=== PATIENT | female | born 1980 | race Caucasian/White ===

== ENCOUNTER 2017-06-15 08:43 | Emergency (ER) | payer OTHER ==
[~2017-06-15] VITALS: Ht 160 cm; Wt 87.1 kg
[~2017-06-15 08:43] MED LIST: AMOXICILLIN500 M2 PO; AMOXICILLIN500 MG PO; AMOXIL500 MG PO; BACTRIM DS 8001 TA1 PO; BACTROBAN CREAM15 GM PO; FIORICET 325 MG1 TAB PO; FLEXERIL10 MG PO; FLONASE ALLERG9.9 ML NAS; HYDROCODONE BIT1 T11 PO; IBU-8800 MG PO; KEFLEX500 MG PO; LOMOTIL 0.025 M1 TA1 PO; MOTRIN800 MG PO; NAPROSYN500 MG PO; NKHM; NORCO 325 MG-51 TAB PO; PEN-V500 MG PO; PERIDEX 480 ML480 ML PO; PHENERGAN W/ DE30 ML PO; PREDNICOT10 MG PO; PREDNISONE10 MG PO; PREDNISONE20 MG PO; PROAIR HFA0.09 MG/AC IH; PROAIR HFA0.09 MG/AC INH; PROVENTIL0.09 MG/AC IH; PYRIDIUM200 M1 PO; ROBITUSSIN DM480 ML PO; VENTOLIN H0.09 MG/AC INH; ZITHROMAX TRI-500 MG PO; ZITHROMAX Z PA250 MG PO; ZOFRAN ODT4 MG SL; ZYRTEC10 MG PO
[2017-06-15] MEDS ORDERED: TESSALON PERLE100 MG PO (09:52)
== END 2017-06-15 10:12 | disposition home or self-care (01) ==
LOC: ED 08:43
DX: J06.9 Acute upper respiratory infection, unspecified (principal); R05 Cough; Z88.6 Allergy status to analgesic agent; Z79.899 Other long term (current) drug therapy

== ENCOUNTER 2017-09-23 23:12 | Emergency (ER) | payer OTHER ==
[~2017-09-23] VITALS: Ht 160 cm; Wt 85.7 kg
[~2017-09-23 23:12] MED LIST changes: +TESSALON PERLE100 MG PO
== END 2017-09-23 23:44 | disposition home or self-care (01) ==
LOC: ED 23:12
DX: M25.511 Pain in right shoulder (principal); Z98.51 Tubal ligation status; Z88.6 Allergy status to analgesic agent; X50.1XXA Overexertion from prolonged static or awkward postures, initial encounter; Y93.89 Activity, other specified; Y92.89 Other specified places as the place of occurrence of the external cause; Y99.9 Unspecified external cause status

== ENCOUNTER 2017-10-21 15:38 | Emergency (ER) | payer OTHER ==
[~2017-10-21] VITALS: Ht 160 cm; Wt 83.0 kg
[2017-10-21] MEDS ORDERED: FLONASE ALLERG9.9 ML NAS (15:59)
[2017-10-21] MEDS ORDERED: AMOXICILLIN500 M2 PO (15:59)
[2017-10-21] MEDS ORDERED: ZYRTEC10 MG PO (15:59)
== END 2017-10-21 16:15 | disposition home or self-care (01) ==
LOC: ED 15:38
DX: J01.90 Acute sinusitis, unspecified (principal); F17.200 Nicotine dependence, unspecified, uncomplicated; Z88.8 Allergy status to other drugs, medicaments and biological substances

== ENCOUNTER 2017-12-13 22:06 | Inpatient (IN) | payer OTHER ==
[~2017-12-13] VITALS: Ht 160 cm; Wt 84.4 kg
--- NOTE | ~2017-12-13 | EKG ---
[place], [place] ELECTROCARDIOGRAM REPORT NAME: ABIGAIL WHITLOCK UNIT #: [id number] ROOM: 518 DOCTOR: NOAM DRAFT REPORT BIRTHDATE: [birth year] [facility] [place] Test Date: 2017-12-13 Test Time: 22:33:04 Pat Name: ABIGAIL WHITLOCK Department: Room: 518 Gender: F Emergency Care Attendant: SS RESP : 1980 Requested By: PALMIRA RAMEY DNP Order Number: [id number] Reading MD: Tim Rivas MD Measurements Intervals [place] Rate: 123 P: 56 IL: 126 QRS: -17 QRSD: 100 T: 54 QT: 319 QTc: 457 Interpretive Statements Sinus tachycardia Ventricular premature complex Borderline left axis deviation Borderline low voltage, extremity leads Electronically Signed On 12-14-2017 14:08:23 PDT by Tim Rivas MD CM:EKGRPT:ELECTROCARDIOGRAM REPORT [id number] PALMIRA SANTACRUZ DRAFT REPORT PALMIRA RAMEY DNP
[2017-12-13 22:08] VITALS: BP 131/79
[2017-12-13 22:27] LABS: BILIRUBIN 1+ (NEGATIVE); BLOOD 1+ (NEGATIVE); CLARITY CLOUDY (CLEAR); COLOR YELLOW (YELLOW); GLUCOSE TRACE (NEGATIVE); KETONE 3+ (NEGATIVE); LEUKO ESTERASE 3+ (NEGATIVE); NITRITE POSITIVE (NEGATIVE); SPECIFIC GRAVITY <= 1.005 (1.005-1.030); UROBILINOGEN >= 8.0 E.U./dl (0.2-1.0)
[2017-12-13 22:32] LABS: BASO % 0.4 % (0.0-1.0); EOS # 0.1 10*3/uL (0.0-0.4); EOS % 1.3 % (1.0-4.0); HEMATOCRIT 41.2 % (37.0-47.0); HEMOGLOBIN 14.2 g/dl (12.0-16.0); LYMPH # 0.4 10*3/uL (1.3-4.4); LYMPH % 9.5 % (27.0-41.0); MEAN CELL VOLUME 91.2 fl (81.0-99.0); MEAN CORPUSCULAR HGB 31.4 pg (27.0-31.0); MEAN CORPUSCULAR HGB CONC 34.5 g/dl (33.0-37.0); MEAN PLATELET VOLUME 10.2 fl (9.6-12.3); MONO # 0.4 10*3/uL (0.1-1.0); MONO % 7.5 % (3.0-9.0); NEUT # 3.8 10*3/uL (2.3-7.9); NEUT % 81.1 % (47.0-73.0); PLATELET COUNT AUTOMATED 212 10*3/uL (130-400); RED BLOOD COUNT 4.52 10*6/uL (4.10-5.10); RED CELL DISTRI WIDTH 12.1 % (0-14.5); WHITE BLOOD COUNT 4.6 10*3/uL (4.8-10.8)
[2017-12-13 22:43] LABS: BACTERIA 2+; EPITHELIAL CELLS 15-20; WBC TNTC wbc/hpf (0-5)
[2017-12-13 22:46] LABS: INTERNATIONAL NORM RATIO 0.9 (2.0-3.5)
[2017-12-13 22:49] LABS: ALBUMIN 2.5 gm/dl (3.1-4.5); ALKALINE PHOSPHATASE 155 U/L (45-117); BUN 11 mg/dl (7-24); CHLORIDE 96 mmol/L (98-107); CREATININE 0.81 mg/dL (0.55-1.02); POTASSIUM 3.4 mmol/L (3.5-5.1); SGOT/AST 31 IU/L (3-35); SGPT/ALT 27 U/L (12-78); SODIUM 131 mmol/L (136-145); TOTAL PROTEIN 7.4 gm/dL (6.4-8.2); TROPONIN I < 0.015 ng/ml (<0.045)
[2017-12-13 22:59] VITALS: BP 130/79
[2017-12-13 23:52] VITALS: BP 115/81
[2017-12-14 00:10] VITALS: BP 126/75
[2017-12-14] MEDS ORDERED: GLUCOPHAGE1000 MG PO (00:25)
[2017-12-14 06:39] LABS: BASO % 0.4 % (0.0-1.0); EOS % 0.9 % (1.0-4.0); HEMATOCRIT 39.8 % (37.0-47.0); HEMOGLOBIN 12.9 g/dl (12.0-16.0); LYMPH % 21.9 % (27.0-41.0); MEAN CORPUSCULAR HGB CONC 32.4 g/dl (33.0-37.0); MEAN PLATELET VOLUME 10.1 fl (9.6-12.3); MONO # 0.5 10*3/uL (0.1-1.0); MONO % 9.7 % (3.0-9.0); NEUT # 3.1 10*3/uL (2.3-7.9); NEUT % 66.7 % (47.0-73.0); PLATELET COUNT AUTOMATED 196 10*3/uL (130-400); RED BLOOD COUNT 4.16 10*6/uL (4.10-5.10); RED CELL DISTRI WIDTH 12.3 % (0-14.5); WHITE BLOOD COUNT 4.7 10*3/uL (4.8-10.8)
[2017-12-14 06:42] LABS: MEAN CELL VOLUME 95.7 fl (81.0-99.0)
[2017-12-14 07:05] LABS: BUN 8 mg/dl (7-24); CHLORIDE 104 mmol/L (98-107); CHOLESTEROL 140 mg/dL (<200); CREATININE 0.82 mg/dL (0.55-1.02); PHOSPHOROUS 3.1 mg/dL (2.5-4.9); POTASSIUM 3.8 mmol/L (3.5-5.1); SODIUM 139 mmol/L (136-145); TRIGLYCERIDES 362 mg/dl (<150); VLDL CHOLESTEROL 72 mg/dL (6-40)
[2017-12-14 07:15] LABS: HDL CHOLESTEROL 13 mg/dl (40-60); LDL CHOLESTEROL 55 mg/dL (9-159)
[2017-12-14 08:00] VITALS: BP 118/72
[2017-12-14 08:44] LABS: VITAMIN D, 25-HYDROXY 16.8 ng/mL (30-100)
[2017-12-14 12:00] VITALS: BP 126/71
[2017-12-14 13:49] VITALS: BP 164/78
[2017-12-14 16:00] VITALS: BP 149/93
[2017-12-14 20:00] VITALS: BP 121/70
[2017-12-15] VITALS: BP 110/65
[2017-12-15 08:00] VITALS: BP 120/71
[2017-12-15 12:00] VITALS: BP 136/76
[2017-12-15 16:00] VITALS: BP 153/84
[2017-12-15 20:00] VITALS: BP 139/89
[2017-12-16] VITALS: BP 127/76
[2017-12-16 08:00] VITALS: BP 140/91
[2017-12-16 12:00] VITALS: BP 128/79
[2017-12-16] MEDS ORDERED: VITAMIN D5000 UNI1 PO (15:48)
[2017-12-16] MEDS ORDERED: CIPRO500 MG PO (15:48)
== END 2017-12-16 16:50 | disposition home or self-care (01) | DRG 872 ==
LOC: ED 22:06 → EDHOLD 23:32 → 5E 23:32
PROVIDERS: Nurse Practitioner Family; Student in an Organized Health Care Education/Training Program
DX: A41.9 Sepsis, unspecified organism (principal); N10 Acute pyelonephritis; E11.65 Type 2 diabetes mellitus with hyperglycemia; J20.9 Acute bronchitis, unspecified; B96.20 Unspecified Escherichia coli [E. coli] as the cause of diseases classified elsewhere; E55.9 Vitamin D deficiency, unspecified; Z98.51 Tubal ligation status; Z88.8 Allergy status to other drugs, medicaments and biological substances; Z91.040 Latex allergy status; Z79.899 Other long term (current) drug therapy; Z72.0 Tobacco use; Z71.6 Tobacco abuse counseling; M94.0 Chondrocostal junction syndrome [Tietze]

== ENCOUNTER 2018-11-23 00:26 | Emergency (ER) | payer OTHER ==
[~2018-11-23] VITALS: Ht 160 cm; Wt 77.1 kg
[~2018-11-23 00:26] MED LIST changes: +CIPRO500 MG PO; +GLUCOPHAGE1000 MG PO; +VITAMIN D5000 UNI1 PO
[2018-11-23] MEDS ORDERED: AUGMENTIN 875-875 MG PO (00:45)
== END 2018-11-23 00:45 | disposition home or self-care (01) ==
LOC: ED 00:26
DX: J32.9 Chronic sinusitis, unspecified (principal); J45.909 Unspecified asthma, uncomplicated; E11.9 Type 2 diabetes mellitus without complications; F17.200 Nicotine dependence, unspecified, uncomplicated; Z91.040 Latex allergy status; Z88.8 Allergy status to other drugs, medicaments and biological substances; Z79.899 Other long term (current) drug therapy; Z79.2 Long term (current) use of antibiotics

== ENCOUNTER 2019-01-04 17:15 | Inpatient (IN) | payer OTHER ==
[~2019-01-04] VITALS: Ht 160 cm; Wt 74.5 kg
--- NOTE | ~2019-01-04 | EKG ---
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
--- NOTE | ~2019-01-04 | CON ---
[place], [place] REPORT OF CONSULTATION NAME: ABIGAIL WHITLOCK UNIT #: [id number] ROOM: 404 DOCTOR: MARY WILSON MD BIRTHDATE: [birth year] DOS: 01/05/2019 HISTORY OF PRESENT ILLNESS: This is a 38-year-old patient who has presented with chief complaint of epigastric abdominal pain, nausea, vomiting. The patient consumes about 3 liters of Pepsi per day and she is a smoker of cigarette, nicotine products. At the time of admission, she had been studied white blood cell was 17, H and H of 17 and 49, dehydrated. Her INR was 0.9. Comprehensive metabolic panel: GFR greater than 60 and potassium of 3.4, sodium 132. Chemistry was normal. Lipase was 189. Lactic acid was 2.7. Chest x-ray was no focal infiltrate. CT scan of the abdomen, cholelithiasis, no adverse effect on LFTs. CBC differential gradually corrected. CT of the chest bronchitis, thickening of the esophagus, small hernia, hepatic steatosis, all was noticed. D-dimer normal. Labs and records was reviewed. Her urinalysis 3+ glucose, 3+ ketones, 1+ bacteria. She has been started already on antibiotic expecting culture positivity. PAST MEDICAL HISTORY: Associated with epigastric distress. PAST SURGICAL HISTORY: Tonsillectomy and adenoidectomy, tubal ligation. SOCIAL HISTORY: Smoker 1 pack in 3 liters of Pepsi drinking. ALLERGIES: LATEX and ROBITUSSIN. FAMILY HISTORY: Noncontributory. REVIEW OF SYSTEMS: HEENT: Denies double vision, blurred vision. RESPIRATORY: Some shortness of breath. CARDIOVASCULAR: Atypical chest pain. DIGESTIVE SYSTEM: Epigastric distress, pain and nausea. PHYSICAL EXAMINATION: VITAL SIGNS: Stable. HEENT: Head normocephalic, nontraumatic. Mouth and buccal mucosa benign. NECK: Supple, no thyromegaly, no cervical lymphadenopathy. CHEST: Symmetric anatomy, equal expansion. No wheeze, no rhonchi. HEART: Normal sinus rhythm, no gallop, no murmur. ABDOMEN: Soft. No hepato-organomegaly. Bowel sounds present in subxiphoid tenderness elicited. EXTREMITIES: No cyanosis, no pedal edema. NEUROLOGIC: Alert, oriented to time, place, person. LABORATORY DATA: Reviewed. Records reviewed. IMPRESSION: Epigastric distress, could be secondary to sliding hiatal hernia, gastritis and bile reflux is a consideration drinking 3 liters of carbonated soda Pepsi a day in addition to smoking nicotine products a possibility of urinary tract infection on board. I was hoping that Zosyn can be discontinued. Cultures are pending. hopefully by tomorrow and if so, if no convincing reason [place], [place] REPORT OF CONSULTATION NAME: KAMLESH,JUNE UNIT #: [id number] ROOM: 404 DOCTOR: MARY WILSON MD BIRTHDATE: [birth year] for UTI and then immediate discontinuation of Zosyn. PLAN AND DISCUSSION: Continuation of Protonix 40 mg daily scheduling the patient for Thursday morning for endoscopy. MARY WILSON MD CM:CONSTR:REPORT OF CONSULTATION 1537 01/19/19 0751 interface
--- NOTE | ~2019-01-04 | EKG ---
[place], [place] ELECTROCARDIOGRAM REPORT NAME: ABIGAIL WHITLOCK UNIT #: [id number] ROOM: 404 DOCTOR: NOAM DRAFT REPORT BIRTHDATE: [address] [facility] Test Date: 2019-01-04 Test Time: 23:16:33 Pat Name: ABIGAIL WHITLOCK Department: Room: 404 Gender: F Rn Advanced: Marquita Oshea : 1980 Requested By: GALA CASTANEDA Order Number: [id number] Reading MD: Jose Leonardo MD Measurements Intervals [place] Rate: 112 P: 70 [place]: 146 QRS: 21 QRSD: 98 T: 22 QT: 359 QTc: 490 Interpretive Statements Sinus tachycardia Low voltage, extremity leads Borderline prolonged QT interval Compared to ECG 12/13/2017 22:33:04 Ventricular premature complex(es) no longer present Electronically Signed On 01-05-2019 6:07:04 PDT by Jose Leonardo MD CM:EKGRPT:ELECTROCARDIOGRAM REPORT [id number] GALA SANTACRUZ DRAFT REPORT GALA CASTANEDA M.D.
--- NOTE | ~2019-01-04 | EKG ---
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1980 Requested By: GALA CASTANEDA Order Number: [id number] Reading MD: Jose Leonardo MD Measurements Intervals [place] Rate: 121 P: 74 IL: 134 QRS: -11 QRSD: 104 T: 52 QT: 346 QTc: 491 Interpretive Statements Sinus tachycardia Probable left atrial enlargement Low voltage, extremity leads Abnormal R-wave progression, late transition Borderline prolonged QT interval Compared to ECG 12/13/2017 22:33:04 Ventricular premature complex(es) no longer present Electronically Signed On 01-05-2019 6:00:13 PDT by Jose Leonardo MD CM:EKGRPT:ELECTROCARDIOGRAM REPORT 1723 [id number] GALA SANTACRUZ DRAFT REPORT GALA CASTANEDA M.D.
--- NOTE | ~2019-01-04 | O ---
[place], [place] OPERATIVE NOTE NAME: ABIGAIL WHITLOCK UNIT #: [id number] ROOM: 404 DOCTOR: MARY WILSON MD BIRTHDATE: [birth year] DOS: GASTROENDOSCOPIC REPORT HISTORY OF PRESENT ILLNESS: A 38-year-old patient who has presented with chief complaint of persistent nausea, vomiting, undergoing investigation. The patient's symptomatology was associated with dyspepsia as well. PROCEDURE: Today's procedure part of investigation is panendoscopy plus biopsy and photographic series. PREMEDICATION: Propofol. SCOPE: Olympus forward-viewing gastroscope Q10 video. REPORT: After putting the patient in left lateral position and application of lubricant to the scope, the scope was introduced. Thereafter, under direct visualization, advanced through the length of esophagus without difficulty. Diffuse esophageal ulceration in the lower third of the esophagus was appreciated, photographed. Gastric pouch was entered. Gastritis of bile reflux type seen. Duodenum within normal limits. Air was suctioned out. Gastric content suctioned out. Antral biopsy obtained. Distal esophageal biopsy from the ulcerations were obtained. Photographic series done. The patient extubated, tolerated the procedure well. IMPRESSION: Diffuse distal esophageal ulceration, bile reflux gastritis, status post antral biopsies, status post distal esophagus ulceration biopsy, status post photographic series. PLAN AND DISCUSSION: This patient has a habit of drinking 3 liters of Pepsi per day in addition to nicotine products. I had discussion with her to abstain entirely from intake of sodas. Elevation of the head of the bed 10 inches all time. No smoking. I am going to start her on Protonix 40 mg IV b.i.d. while in the hospital, Carafate 2 grams slurry q.i.d., addition of 5 mg of Reglan q.p.m., Gaviscon Extra Strength 1 tablet p.c. breakfast and at bedtime in day or two. The patient can be discharged safely as outpatient, followed up. [place], [place] OPERATIVE NOTE NAME: ABIGAIL WHITLOCK UNIT #: [id number] ROOM: 404 DOCTOR: MARY WILSON MD BIRTHDATE: [birth year] MARY WILSON MD CM:OPRECORD:OPERATIVE NOTE 1640 [id number] MARY WILSON MD 01/07/19 1709 interface
[~2019-01-04 17:15] MED LIST changes: +AUGMENTIN 875-875 MG PO
[2019-01-04 17:16] VITALS: BP 135/89
[2019-01-04 17:37] LABS: BASO % 0.2 % (0.0-1.0); HEMATOCRIT 49.3 % (37.0-47.0); HEMOGLOBIN 17.2 g/dl (12.0-16.0); LYMPH # 2.3 10*3/uL (1.3-4.4); LYMPH % 13.1 % (27.0-41.0); MEAN CELL VOLUME 93.2 fl (81.0-99.0); MEAN CORPUSCULAR HGB 32.5 pg (27.0-31.0); MEAN CORPUSCULAR HGB CONC 34.9 g/dl (33.0-37.0); MEAN PLATELET VOLUME 9.8 fl (9.6-12.3); MONO # 0.6 10*3/uL (0.1-1.0); MONO % 3.5 % (3.0-9.0); NEUT # 14.7 10*3/uL (2.3-7.9); NEUT % 82.9 % (47.0-73.0); PLATELET COUNT AUTOMATED 348 10*3/uL (130-400); RED BLOOD COUNT 5.29 10*6/uL (4.10-5.10); RED CELL DISTRI WIDTH 11.9 % (0-14.5); WHITE BLOOD COUNT 17.7 10*3/uL (4.8-10.8)
[2019-01-04 17:48] LABS: ACT PARTIAL THROMBO TIME 27.2 SECONDS (20.0-32.1); INTERNATIONAL NORM RATIO 0.9 (2.0-3.5)
[2019-01-04 17:53] LABS: ALBUMIN 3.8 gm/dl (3.1-4.5); ALKALINE PHOSPHATASE 106 U/L (45-117); BUN 16 mg/dl (7-24); CHLORIDE 90 mmol/L (98-107); CREATININE 0.95 mg/dL (0.55-1.02); POTASSIUM 3.4 mmol/L (3.5-5.1); SGOT/AST 9 IU/L (3-35); SGPT/ALT 21 U/L (12-78); SODIUM 132 mmol/L (136-145); TOTAL PROTEIN 7.8 gm/dL (6.4-8.2)
[2019-01-04 17:55] LABS: TROPONIN I < 0.015 ng/ml (<0.045)
--- NOTE | 2019-01-04 18:02 | NUR ---
PT REFUSED TYLENOL "TOO NAUSEATED IM AFRAID I WONT KEEP THEM DOWN" HERB MONTALVO NOTIFIED
--- NOTE | 2019-01-04 19:05 | NUR ---
REPOR TO KATHARINE SANCHEZ TRANSFERRED
--- NOTE | 2019-01-04 19:06 | NUR ---
REPORT FROM VENANCIO NUNES, ASSUMED CARE OF PT
[2019-01-04 19:14] LABS: BILIRUBIN 1+ (NEGATIVE); BLOOD NEGATIVE (NEGATIVE); CLARITY CLEAR (CLEAR); COLOR YELLOW (YELLOW); GLUCOSE 3+ (NEGATIVE); KETONE 3+ (NEGATIVE); LEUKO ESTERASE NEGATIVE (NEGATIVE); NITRITE NEGATIVE (NEGATIVE); PH 5.5 (5.0-9.0); SPECIFIC GRAVITY 1.025 (1.005-1.030); UROBILINOGEN 0.2 E.U./dl (0.2-1.0)
--- NOTE | 2019-01-04 19:20 | NUR ---
CT COMPLETE ORDERED
[2019-01-04 19:23] LABS: BACTERIA 1+
[2019-01-04 20:49] VITALS: BP 129/74
--- NOTE | 2019-01-04 21:17 | NUR ---
AWAITING ROOM ASSIGNMENT FOR ADMISSION
--- NOTE | 2019-01-04 21:35 | NUR ---
PT ADMITTED TO [facility] WITH RN ON TELE, ST ON MONITOR, RESP EASY, ZITHROMAX INFUSING VIA PUMP WITH NO REDNESS OR SWELLING, BELONGINGS WITH PT
[2019-01-04 21:36] VITALS: BP 124/72
--- NOTE | 2019-01-04 21:36 | NUR ---
PATIENT STATES SHE DOES NOT TAKE ANY MEDICATIONS AT HOME. WHEN QUESTIONED ABOUT METFORMIN SHE STATED SHE STOPPED TAKING IT. WHEN ASKED IF SHE CHECKS HER BLOOD SUGAR AT HOME SHE SAID ONCE IN A WHILE. PATIENT DOES NOT HAVE A FAMILY DOCTOR AT THIS TIME.
--- NOTE | 2019-01-04 21:36 | NUR ---
A 38, admitted to , under the services of YULIET Patterson DO with a diagnosis of SEPSIS, ESOPHAGITIS, PNEUMONITIS. Chief complaint is MULTIPLE COMPLAINTS. Patient arrived via stretcher from ER. Monitor applied. Initial assessment completed. Vital signs taken and recorded. See assessment for past medical history, medications and allergies. Patient and/or family oriented to unit. [address] visitation policy reviewed. Clothing/patient valuable form completed. ESTEFANY SANDOVAL
[2019-01-05] VITALS: BP 140/81
--- NOTE | 2019-01-05 00:55 | NUR ---
24 HR chart check completed.
--- NOTE | 2019-01-05 01:50 | NUR ---
PATIENT SLEEPING QUIETLY IN BED. RESPIRATIONS EVEN AND UNLABORED. NS INFUSING ORDERED. BED IN LOWEST POSITION. CALL LIGHT WITHIN REACH.
--- NOTE | 2019-01-05 03:19 | NUR ---
PATIENT LAYING IN BED CRYING. SHE IS C/O UPPER ABDOMINAL PAIN THAT IS THE SAME EARLIER WITH NAUSEA. PRN MORPHINE AND ZOFRAN GIVEN PER ORDER. OFFERED PATIENT AN ICE PACK OR COOL WASH CLOTH BUT PATIENT DECLINED. CALL LIGHT WITHIN REACH. IV FLUIDS INFUSING ORDERED. WILL CONTINUE TO MONITOR FOR EFFECTIVENESS.
--- NOTE | 2019-01-05 03:51 | NUR ---
PATIENT SLEEPING IN BED. RESPIRATIONS EVEN AND UNLABORED. PRN MORPHINE AND ZOFRAN EFFECTIVE.
--- NOTE | 2019-01-05 05:37 | NUR ---
KAMLESH [id number] Please refer to the physician's history and physical for past medical history, comorbid conditions, and allergies. Diagnosis: SEPSIS, ESOPHAGITIS, PNEUMONITIS Cezar Score: 21,LOW OR NO RISK WOUND DESCRIPTIONS: Wound Number: 1 Location of the wound: left thumb Type of wound: laceration Thickness: Partial Size: 0.1cm x 1.2cm x <0.1cm Tunneling: none Undermining: none Sinus Tract: none Presence of Exudate: none Amount: None Color: Red Odor: None Periwound Skin Appearance: erythema Wound edges: approximated Pain (associated with wound): tender to touch How does patient state this happened? pt stated she is unsure how this happened but noticed it a couple of days ago Wound Number: 2 Location of the wound: left palm Type of wound: laceration Thickness: Partial Size: 0.1cm x 1.7cm x <0.1cm Tunneling: none Undermining: none Sinus Tract: none Presence of Exudate: none Amount: None Color: Red Odor: None Periwound Skin Appearance: Erythema Wound edges: approximated Pain (associated with wound): tender to touch How does patient state this happened? pt stated she is unsure how this happened but noticed it a couple of days ago Surface the patient is resting on: Isoflex SKIN PREVENTION RECOMMENDATION: 1. Pressure redistribution support surface as appropriate 2. Elevate heels 3. Remove boots/TEDS every shift and reapply 4. Head of bed 30 degrees as tolerated 5. Assess nutrition and hydration 6. Manage moisture 7. Avoid the use of containment devices while in bed 8. Use absorptive products on surfaces limit layers of linens on bed 9. Turn and reposition every 1-2 hours in bed and every 1 hour in chair as tolerated 10. Weight shifts every 15 minutes while up in chair 11. Offloading with pillows or device to keep heels elevated off bed 12. Monitor skin at least every shift 13. Inspect under medical devices twice a day WOUND TREATMENT RECOMMENDATIONS: Cleanse left thumb and left palm with nss and apply bactroban tid and cover with bandaid. Dr. Castillo notified of wound care recommendation. Patient stated she will take care of this area upon leaving as she done previously.
--- NOTE | 2019-01-05 06:05 | NUR ---
DR. MCKEON NOTIFIED OF PATIENT STILL HAVING SEVERE PAIN IN HER UPPER ABDOMEN AND MORPHINE IS NOT DUE UNTIL 714. PATIENT IS ALSO REPORTING NAUSEA. DR. MCKEON TO PUT ORDERS IN.
--- NOTE | 2019-01-05 06:26 | NUR ---
PATIENT MEDICATED WITH PRN NORCO AND PHENERGAN. WILL MONITOR FOR EFFECTIVENESS.
[2019-01-05 06:45] LABS: BASO # 0.1 10*3/uL (0.0-0.1); BASO % 0.3 % (0.0-1.0); EOS % 0.1 % (1.0-4.0); HEMATOCRIT 43.4 % (37.0-47.0); HEMOGLOBIN 14.8 g/dl (12.0-16.0); LYMPH % 18.9 % (27.0-41.0); MEAN CORPUSCULAR HGB 32.4 pg (27.0-31.0); MEAN CORPUSCULAR HGB CONC 34.1 g/dl (33.0-37.0); MONO # 0.9 10*3/uL (0.1-1.0); MONO % 5.7 % (3.0-9.0); NEUT # 11.8 10*3/uL (2.3-7.9); NEUT % 74.6 % (47.0-73.0); PLATELET COUNT AUTOMATED 286 10*3/uL (130-400); RED BLOOD COUNT 4.57 10*6/uL (4.10-5.10); RED CELL DISTRI WIDTH 11.9 % (0-14.5); WHITE BLOOD COUNT 15.8 10*3/uL (4.8-10.8)
[2019-01-05 06:46] LABS: ALBUMIN 3.2 gm/dl (3.1-4.5); BUN 13 mg/dl (7-24); CHLORIDE 103 mmol/L (98-107); CHOLESTEROL 207 mg/dL (<200); CREATININE 0.66 mg/dL (0.55-1.02); PHOSPHOROUS 2.6 mg/dL (2.5-4.9); POTASSIUM 3.4 mmol/L (3.5-5.1); SGOT/AST 8 IU/L (3-35); SGPT/ALT 16 U/L (12-78); SODIUM 137 mmol/L (136-145); TRIGLYCERIDES 248 mg/dl (<150); VLDL CHOLESTEROL 50 mg/dL (6-40)
[2019-01-05 06:53] LABS: ALKALINE PHOSPHATASE 83 U/L (45-117); FREE T4 0.88 ng/dl (0.76-1.46); HDL CHOLESTEROL 43 mg/dl (40-60); LDL CHOLESTEROL 114 mg/dL (9-159); TOTAL PROTEIN 6.3 gm/dL (6.4-8.2)
--- NOTE | 2019-01-05 06:55 | NUR ---
PATIENT STATED PRN NORCO AND PHENERGAN HAS HELPED HER PAIN AND NAUSEA.
[2019-01-05 07:01] LABS: ACT PARTIAL THROMBO TIME 27.1 SECONDS (20.0-32.1); INTERNATIONAL NORM RATIO 0.9 (2.0-3.5)
[2019-01-05 07:33] LABS: VITAMIN D, 25-HYDROXY 7.7 ng/mL (30-100)
[2019-01-05 08:00] VITALS: BP 138/78
--- NOTE | 2019-01-05 08:03 | NUR ---
PT RESTING IN BED. NO DISTRESS NOTED. WILL MONITOR
--- NOTE | 2019-01-05 09:00 | NUR ---
Zigzag Elastic Attacher in to talk to patient. Patient states lives at home with family. There are few steps in the home. Physician: none Pharmacy: none Home health services: none Patient's level of ADLs: INDEPENDENT Patient has working utilities: all working DME: none Follow-up physician's appointment after d/c: will be made by [facility] nurse director upon discharge Does patient want to access PORTAL?: no Discharge plan discussed with patient, she states she lives at home with family, she is independent in adls and ambulation, she states she will be returning home when medically stable and denies any home needs. MARY WOO
--- NOTE | 2019-01-05 10:23 | NUR ---
SURGERY CALLED AND NOTIFIED OF [facility] CONSULT ( BRIANMelissa CURRENTLY DOING SCOPES IN SURGERY )
[2019-01-05 12:00] VITALS: BP 151/82
--- NOTE | 2019-01-05 12:30 | NUR ---
PT MEDICATED WITH ZOFRAN FOR NAUSEA AND MORPHINE FOR ABD PAIN/ PT RATES PAIN 10 WILL MONITOR
--- NOTE | 2019-01-05 15:30 | NUR ---
DR WILSON HERE TO SEE PT
[2019-01-05 16:00] VITALS: BP 130/85
--- NOTE | 2019-01-05 16:16 | NUR ---
PT MEDICATED WITH MORPHINE FOR C/O ABD PAIN. PT RATES PAIN 10/10 WILL MONITOR
--- NOTE | 2019-01-05 19:30 | NUR ---
24 HOUR CHART CHECK COMPLETED
[2019-01-05 20:00] VITALS: BP 158/92
--- NOTE | 2019-01-05 20:05 | NUR ---
PATIENT ASSESSMENT COMPLETED AT THIS TIME WITHOUT INCIDENT. PATIENT REQUESTED MEDICATION FOR PAIN AND NAUSEA AT THIS TIME. IV INFUSING AT THIS TIME WITHOUT INCIDENT, IV SITES ASSESSED AND FLUSHED WITHOUT INCIDENT. FAMILY AT BEDSIDE. CALL LIGHT WITHIN REACH. WILL CONTINUE TO MONITOR.
--- NOTE | 2019-01-05 21:05 | NUR ---
REEVALUATED AT THIS TIME FOLLOWING MEDICATION FOR PAIN PATIENT STATED THAT PAIN WAS BETTER AND HAD DECREASED FROM A 7/10 TO A 3/10.
[2019-01-06] VITALS: BP 142/91
--- NOTE | 2019-01-06 | NUR ---
PATIENT RESTING IN A POSITION OF COMFORT IN BED, RESPIRATIONS EASY AND NON-LABORED, AWAKENED EASILY. IV FLUIDS INFUSING WITHOUT INCIDENT. PATIENT DENIES ANY NEEDS AT THIS TIME. CALL LIGHT WITHIN REACH. WILL CONTINUE TO MONITOR.
[2019-01-06 06:53] LABS: BASO # 0.1 10*3/uL (0.0-0.1); BASO % 0.5 % (0.0-1.0); EOS # 0.1 10*3/uL (0.0-0.4); EOS % 0.9 % (1.0-4.0); HEMATOCRIT 41.3 % (37.0-47.0); HEMOGLOBIN 14.2 g/dl (12.0-16.0); LYMPH # 3.2 10*3/uL (1.3-4.4); MEAN CELL VOLUME 95.2 fl (81.0-99.0); MEAN CORPUSCULAR HGB 32.7 pg (27.0-31.0); MEAN CORPUSCULAR HGB CONC 34.4 g/dl (33.0-37.0); MEAN PLATELET VOLUME 9.7 fl (9.6-12.3); MONO # 0.5 10*3/uL (0.1-1.0); NEUT # 5.4 10*3/uL (2.3-7.9); NEUT % 58.3 % (47.0-73.0); PLATELET COUNT AUTOMATED 242 10*3/uL (130-400); RED BLOOD COUNT 4.34 10*6/uL (4.10-5.10); RED CELL DISTRI WIDTH 11.7 % (0-14.5); WHITE BLOOD COUNT 9.2 10*3/uL (4.8-10.8)
[2019-01-06 07:21] LABS: BUN 7 mg/dl (7-24); CHLORIDE 105 mmol/L (98-107); CREATININE 0.51 mg/dL (0.55-1.02); POTASSIUM 3.2 mmol/L (3.5-5.1); SODIUM 139 mmol/L (136-145)
[2019-01-06 08:00] VITALS: BP 158/70
--- NOTE | 2019-01-06 09:00 | NUR ---
case management visits with patient, she will return home when medically stable and denies any home needs, she is scheduled for an EGD tomorrow by Dr Cordova
--- NOTE | 2019-01-06 09:37 | NUR ---
PT MEDICATED WITH MORPHINE FOR ABD PAIN. PT RATES PAIN 10/10 AND ZOFRAN FOR NAUSEA WILL MONITOR
--- NOTE | 2019-01-06 11:35 | NUR ---
DR FELTON NOTIFIED OF PT UNABLE TO TAKE PO KDUR DT NAUSEA.
[2019-01-06 12:00] VITALS: BP 165/80
--- NOTE | 2019-01-06 13:35 | NUR ---
PT MEDICATED WITH MORPHINE FOR C/O ABD PAIN . PT RATES PAIN 8/10 WILL MONITOR
--- NOTE | 2019-01-06 14:13 | NUR ---
PT RESTING IN BED/ EYES CLOSED. MORPHINE APPEARS EFFECTIVE AT THIS TIME WILL MONITOR
[2019-01-06 16:00] VITALS: BP 138/79
[2019-01-06 20:00] VITALS: BP 134/87
--- NOTE | 2019-01-06 20:00 | NUR ---
24 HOUR CHART CHECK COMPLETE.
--- NOTE | 2019-01-06 20:12 | NUR ---
PRN ZOFRAN AND MORPHINE ADMINISTERED PRESCRIBED FOR PT C/O NAUSEA AND LOWER QUADRANT ABDOMINAL PAIN RATED A 10/10. WILL CONTINUE TO MONITOR AND REASSESS. NO OTHER COMPLAINTS AT THIS TIME.
--- NOTE | 2019-01-06 20:36 | NUR ---
PT RESTING IN BED. STATES THE PAIN MEDICATION HELPED RELIEVE SOME PAIN. PAIN IS RATED A 3/10 NOW.
[2019-01-07] VITALS (8 sets, daily range): BP systolic 111–150; BP diastolic 75–92
[2019-01-07 06:13] LABS: BASO % 0.5 % (0.0-1.0); EOS # 0.1 10*3/uL (0.0-0.4); EOS % 1.5 % (1.0-4.0); HEMATOCRIT 41.9 % (37.0-47.0); HEMOGLOBIN 14.1 g/dl (12.0-16.0); LYMPH # 2.7 10*3/uL (1.3-4.4); MEAN CELL VOLUME 95.9 fl (81.0-99.0); MEAN CORPUSCULAR HGB 32.3 pg (27.0-31.0); MEAN CORPUSCULAR HGB CONC 33.7 g/dl (33.0-37.0); MEAN PLATELET VOLUME 9.8 fl (9.6-12.3); MONO # 0.5 10*3/uL (0.1-1.0); MONO % 5.7 % (3.0-9.0); NEUT # 4.9 10*3/uL (2.3-7.9); NEUT % 58.9 % (47.0-73.0); PLATELET COUNT AUTOMATED 224 10*3/uL (130-400); RED BLOOD COUNT 4.37 10*6/uL (4.10-5.10); RED CELL DISTRI WIDTH 11.6 % (0-14.5); WHITE BLOOD COUNT 8.2 10*3/uL (4.8-10.8)
[2019-01-07 06:42] LABS: BUN 5 mg/dl (7-24); CHLORIDE 104 mmol/L (98-107); CREATININE 0.56 mg/dL (0.55-1.02); POTASSIUM 3.3 mmol/L (3.5-5.1); SODIUM 138 mmol/L (136-145)
--- NOTE | 2019-01-07 07:00 | NUR ---
ARRIVED ON SHIFT, INTRODUCED TO PATIENT, BEDSIDE REPORT RECEIVED, NO NEEDS VOICED AT THIS TIME. WHITE BOARD UPDATED.
--- NOTE | 2019-01-07 07:36 | NUR ---
Shift chart check completed.
--- NOTE | 2019-01-07 09:00 | NUR ---
case management visits with patient she states she will return home when medically stable, she is scheduled for an EGD today, case management will follow
--- NOTE | 2019-01-07 12:39 | NUR ---
PATIENT C/O PAIN BOTH ARNS RATES PAIN 7/10 BURNING PAIN, PATIENT NPO, GAVE MORPHINE FOR PAIN.
--- NOTE | 2019-01-07 13:29 | NUR ---
GOOD EFFECT FROM MORPHINE GIVEN X 1 HOUR AGO, PATIENT REPORTS PAIN RELIEVED.
--- NOTE | 2019-01-07 15:16 | NUR ---
Nutritional Support Services Note: Pt is NPO at this time. Dx of sepsis, esophagitis, pneumonia, DM, Anxiety. Mild protein calorie malnutrition. Pt has not been eating the last several days, vomiting noted. Will follow for advancment of po intake. Sunita Pollack Rdn Ld
--- NOTE | 2019-01-07 20:00 | NUR ---
24 HOUR CHART CHECK COMPLETE.
[2019-01-08] VITALS: BP 134/85
--- NOTE | 2019-01-08 07:00 | NUR ---
ARRIVED ON SHIFT, INTRODUCED TO PATIENT, BEDSIDE REPORT RECEIVED, WHITE BOARD UPDATED, NO NEEDS VOICED AT THIS TIME.
[2019-01-08] MEDS ORDERED: PROTONIX40 M1 IV (09:17)
[2019-01-08] MEDS ORDERED: JARDIANCE10 MG PO (09:17)
[2019-01-08] MEDS ORDERED: Carafate1 GM/10 ML PO (09:17)
[2019-01-08] MEDS ORDERED: METFORMIN HCL500 M2 PO (09:17)
[2019-01-08] MEDS ORDERED: Vitamin D PO (09:17)
[2019-01-08] MEDS ORDERED: VITAMIN B-12100 MCG PO (09:17)
[2019-01-08] MEDS ORDERED: K-TAB20 MEQ PO (10:30)
--- NOTE | 2019-01-08 11:36 | NUR ---
Discharge instructions reviewed with patient. Patient receptive and verbalizes understanding. Follow-up care arranged. Written instructions given to patient INCLUDING WRITTEN PERSCRIPTIONS, IV REMOVED, PATIENT REFUSED W/C FOR D/C SOFIYA MÉNDEZ
== END 2019-01-08 11:45 | disposition home or self-care (01) | DRG 871 ==
LOC: ED 17:15 → 4E 20:38 → EDHOLD 20:38 → 4E 21:25
PROVIDERS: Emergency Medicine; Internal Medicine; Physician Assistant; ADMIT Internal Medicine
PROC: 0DB38ZX Excision of Lower Esophagus, Via Natural or Artificial Opening Endoscopic, Diagnostic (ICD-10-PCS; principal; 2019-01-07)
PROC: 0DB78ZX Excision of Stomach, Pylorus, Via Natural or Artificial Opening Endoscopic, Diagnostic (ICD-10-PCS; 2019-01-07)
DX: A41.9 Sepsis, unspecified organism (principal); J18.9 Pneumonia, unspecified organism; E87.2 Acidosis; E87.1 Hypo-osmolality and hyponatremia; E44.1 Mild protein-calorie malnutrition; K22.10 Ulcer of esophagus without bleeding; K52.9 Noninfective gastroenteritis and colitis, unspecified; J40 Bronchitis, not specified as acute or chronic; E11.65 Type 2 diabetes mellitus with hyperglycemia; E87.6 Hypokalemia; E87.8 Other disorders of electrolyte and fluid balance, not elsewhere classified; J01.10 Acute frontal sinusitis, unspecified; E86.0 Dehydration; F17.210 Nicotine dependence, cigarettes, uncomplicated; E78.5 Hyperlipidemia, unspecified; R65.20 Severe sepsis without septic shock; K29.70 Gastritis, unspecified, without bleeding; K44.9 Diaphragmatic hernia without obstruction or gangrene; Z68.29 Body mass index [BMI] 29.0-29.9, adult; Z98.51 Tubal ligation status; Z88.8 Allergy status to other drugs, medicaments and biological substances; Z91.040 Latex allergy status; Z71.6 Tobacco abuse counseling

== ENCOUNTER 2019-10-22 23:19 | Emergency (ER) | payer OTHER ==
[~2019-10-22] VITALS: Ht 160 cm; Wt 79.4 kg
[~2019-10-22 23:19] MED LIST changes: +Carafate1 GM/10 ML PO; +JARDIANCE10 MG PO; +K-TAB20 MEQ PO; +METFORMIN HCL500 M2 PO; +PROTONIX40 M1 IV; +VITAMIN B-12100 MCG PO; +Vitamin D PO
[2019-10-23] MEDS ORDERED: CLARITIN10 MG PO (00:17)
[2019-10-23] MEDS ORDERED: FLONASE ALLERG9.9 ML NAS (00:17)
== END 2019-10-23 00:40 | disposition home or self-care (01) ==
LOC: ED 23:19
DX: J02.9 Acute pharyngitis, unspecified (principal); R09.81 Nasal congestion; F17.210 Nicotine dependence, cigarettes, uncomplicated; Z88.8 Allergy status to other drugs, medicaments and biological substances; Z91.040 Latex allergy status

== ENCOUNTER 2020-01-27 19:16 | Emergency (ER) | payer OTHER ==
[~2020-01-27] VITALS: Ht 160 cm; Wt 75.7 kg
[~2020-01-27 19:16] MED LIST changes: +CLARITIN10 MG PO; +KEFLEX500 M1 PO
[2020-01-27] MEDS ORDERED: IBUPROFEN600 MG PO (21:30)
[2020-04-02] MEDS ORDERED: MACROBID100 M1 PO (21:09)
[2020-04-02] MEDS ORDERED: PYRIDIUM200 M1 PO (21:09)
== END 2020-01-27 21:23 | disposition home or self-care (01) ==
LOC: ED 19:16
DX: R05 Cough (principal); J02.9 Acute pharyngitis, unspecified; R50.9 Fever, unspecified; Z91.040 Latex allergy status; Z88.8 Allergy status to other drugs, medicaments and biological substances; Z79.899 Other long term (current) drug therapy; Z20.828 Contact with and (suspected) exposure to other viral communicable diseases

== ENCOUNTER 2020-04-25 21:25 | Emergency (ER) | payer OTHER ==
[~2020-04-25] VITALS: Wt 74.4 kg
[~2020-04-25 21:25] MED LIST changes: +IBUPROFEN600 MG PO; +MACROBID100 M1 PO
== END 2020-04-25 22:53 | disposition home or self-care (01) ==
LOC: ED 21:25
DX: M67.472 Ganglion, left ankle and foot (principal); F17.210 Nicotine dependence, cigarettes, uncomplicated; Z98.51 Tubal ligation status; Z79.899 Other long term (current) drug therapy; Z88.6 Allergy status to analgesic agent; Z91.040 Latex allergy status

== ENCOUNTER 2023-10-10 21:31 | Emergency (ER) | payer OTHER ==
[~2023-10-10 21:31] MED LIST changes: +ATORVASTATIN CA10 M1 PO; +ESCITALOPRAM OX10 MG PO; +LANTUS SOL100 UNIT/1 SC; +LEVOTHYROXINE75 MCG PO; +LISINOPRIL5 MG PO; +METFORMIN HYDR750 MG PO
[2023-10-10] MEDS ORDERED: methylPREDNISolone sod succ 125 MG VIAL IM ONE (21:40)
[2023-10-10] MEDS ORDERED: methylPREDNISolone sod succ 125 MG VIAL IV ONE (21:40)
[2023-10-10] MEDS ORDERED: Ketorolac Tromethamine 30 MG/ML VIAL IM ONE (21:40)
[2023-10-10] MEDS ORDERED: Ketorolac Tromethamine 30 MG/ML VIAL IV ONE (21:40)
[2023-10-10] MEDS ORDERED: METHOCARBAMOL500 M1 PO (22:28)
[2023-10-10] MEDS ORDERED: MELOXICAM5 MG PO (22:28)
== END 2023-10-10 22:36 | disposition home or self-care (01) ==
LOC: ED 21:31
DX: M54.42 Lumbago with sciatica, left side (principal); M25.552 Pain in left hip; E11.9 Type 2 diabetes mellitus without complications; F41.9 Anxiety disorder, unspecified; J45.909 Unspecified asthma, uncomplicated; F32.A Depression, unspecified; G43.909 Migraine, unspecified, not intractable, without status migrainosus; Z91.040 Latex allergy status; Z88.8 Allergy status to other drugs, medicaments and biological substances; Z90.89 Acquired absence of other organs; Z98.51 Tubal ligation status; Z98.890 Other specified postprocedural states; Z72.0 Tobacco use

== ENCOUNTER 2023-10-26 04:58 | Inpatient (IN) | payer OTHER ==
[2023-10-26] VITALS (7 sets, daily range): BP systolic 115–175; BP diastolic 64–98
[~2023-10-26] VITALS: Ht 160 cm; Wt 84.0 kg
[~2023-10-26 04:58] MED LIST changes: +MELOXICAM5 MG PO; +METHOCARBAMOL500 M1 PO
[2023-10-26 05:45] LABS: BUN 9 mg/dl (9-23); CHLORIDE 94 mmol/L (98-107)
[2023-10-26] MEDS ORDERED: SODIUM CHLORIDE 0.9% 1,000 ML IV ONE ×2 (05:55→11:45)
[2023-10-26 05:56] LABS: HEMATOCRIT 34.6 % (37.0-47.0); MEAN CELL VOLUME 95.1 fl (81.0-99.0); MEAN CORPUSCULAR HGB 30.8 pg (27.0-31.0); MEAN CORPUSCULAR HGB CONC 32.4 g/dl (33.0-37.0); MEAN PLATELET VOLUME 10.1 fl (9.6-12.3); PLATELET COUNT AUTOMATED 569 10*3/uL (130-400); RED BLOOD COUNT 3.64 10*6/uL (4.10-5.10); RED CELL DISTRI WIDTH 12.9 % (0-14.5); WHITE BLOOD COUNT 17.4 10*3/uL (4.8-10.8)
[2023-10-26 06:00] LABS: MANUAL DIFF REFLEX YES
[2023-10-26] MEDS ORDERED: INSULIN REGULAR, HUMAN 1 UNIT/0.01 ML IV ONE (06:00)
[2023-10-26] MEDS ORDERED: MAGNESIUM SULFATE 50 ML IV ONE (06:00)
[2023-10-26 07:03] LABS: BASOPHILS 1 % (0-1); PLATELET SUFFICIENCY HIGH (NORMAL); TOTAL CELLS COUNTED 100 #CELLS
[2023-10-26 07:37] LABS: BILIRUBIN Negative (Negative); BLOOD 1+ (Negative); CLARITY Cloudy (Clear); COLOR Yellow (Yellow); GLUCOSE 3+ (Negative); KETONE 2+ (Negative); LEUKO ESTERASE 2+ (Negative); NITRITE Negative (Negative); PH 6.5 (4.5-8.0); SPECIFIC GRAVITY 1.015 (1.001-1.030); UROBILINOGEN 0.2 E.U./dl (0.0-1.0)
[2023-10-26 07:53] LABS: BACTERIA 4+; EPITHELIAL CELLS 16-20; WBC TNTC wbc/hpf (0-5)
[2023-10-26 07:55] LABS: URINE AMPHETAMINES Negative (1000ng/ml); URINE BARBITURATES Negative (200ng/ml); URINE BENZODIAZEPINES Negative (200ng/ml); URINE CANNABINOIDS (THC) Positive (50ng/ml); URINE COCAINE Negative (300ng/ml); URINE METHADONE Negative (300ng/ml); URINE OPIATES Negative (300ng/ml); URINE PHENCYCLIDINE Negative (25ng/ml)
[2023-10-26] MEDS ORDERED: METRONIDAZOLE 100 ML IV ONE (08:05)
[2023-10-26] MEDS ORDERED: Ceftriaxone Sodium 1 GM/10 ML SYR IV ONE (08:05)
[2023-10-26] MEDS ORDERED: SODIUM CHLORIDE 0.9% 1,000 ML IV SCH (08:05)
[2023-10-26] MEDS ORDERED: ACETAMINOPHEN 325 MG TAB PO ONE (08:35)
[2023-10-26] MEDS ORDERED: MORPHINE Sulfate 2 MG/ML SYR IV ONE (08:35)
[2023-10-26] MEDS ORDERED: Acetaminophen/Hydrocodone 5 MG/325 MG TABLET PO PRN (08:40)
[2023-10-26] MEDS ORDERED: Ondansetron Hydrochloride 4 MG/2 ML VIAL IV PRN (08:40)
[2023-10-26] MEDS ORDERED: ACETAMINOPHEN 325 MG TAB PO PRN (08:40)
[2023-10-26] MEDS ORDERED: BISACODYL 5 MG TAB PO PRN (08:40)
[2023-10-26] MEDS ORDERED: DEXTROSE 10 % IN WATER 250 ML IV PRN (08:40)
[2023-10-26] MEDS ORDERED: METRONIDAZOLE 500 MG TAB PO ONE (08:55)
[2023-10-26] MEDS ORDERED: Enoxaparin Sodium 40 MG/0.4 ML SYR SC SCH (10:00)
[2023-10-26] MEDS ORDERED: INSULIN LISPRO 1 UNIT/0.01 ML SQ SCH (11:30)
[2023-10-26] MEDS ORDERED: methylPREDNISolone sod succ 125 MG VIAL IV ONE (12:30)
[2023-10-26] MEDS ORDERED: MORPHINE Sulfate 2 MG/ML SYR IV PRN (12:30)
[2023-10-26] MEDS ORDERED: IOHEXOL 300 MG/ML 100 ML VIAL IV ONE (22:25)
[2023-10-27] VITALS (14 sets, daily range): BP systolic 112–154; BP diastolic 59–95
[2023-10-27] MEDS ORDERED: Vancomycin Hydrochloride 1,000 MG in SODIUM CHLORIDE 0.9% 250 ML IV SCH ×2 (00:55→12:00)
[2023-10-27] MEDS ORDERED: Vancomycin Hydrochloride 750 MG in SODIUM CHLORIDE 0.9% 250 ML IV ONE (01:10)
[2023-10-27] MEDS ORDERED: Vancomycin Hydrochloride 1,000 MG in SODIUM CHLORIDE 0.9% 250 ML IV ONE (02:15)
[2023-10-27 06:25] LABS: HEMATOCRIT 33.5 % (37.0-47.0); MEAN CELL VOLUME 94.9 fl (81.0-99.0); MEAN CORPUSCULAR HGB 31.2 pg (27.0-31.0); MEAN CORPUSCULAR HGB CONC 32.8 g/dl (33.0-37.0); MEAN PLATELET VOLUME 10.1 fl (9.6-12.3); PLATELET COUNT AUTOMATED 575 10*3/uL (130-400); RED BLOOD COUNT 3.53 10*6/uL (4.10-5.10); RED CELL DISTRI WIDTH 13.2 % (0-14.5); WHITE BLOOD COUNT 16.6 10*3/uL (4.8-10.8)
[2023-10-27 06:34] LABS: MANUAL DIFF REFLEX YES
[2023-10-27 07:07] LABS: ALKALINE PHOSPHATASE 134 U/L (46-116); BUN 11 mg/dl (9-23); CHLORIDE 99 mmol/L (98-107); CHOLESTEROL 148 mg/dL (<200); FREE T4 0.79 ng/dl (0.89-1.76); LDL CHOLESTEROL 92 mg/dL (9-159); POTASSIUM 4.7 mmol/L (3.4-5.1); SGPT/ALT 16 U/L (5-49); TOTAL PROTEIN 6.6 gm/dL (6.0-8.0); TRIGLYCERIDES 157 mg/dl (<150)
[2023-10-27 07:27] LABS: TOTAL CELLS COUNTED 100 #CELLS
[2023-10-27 07:28] LABS: PLATELET SUFFICIENCY HIGH (NORMAL)
[2023-10-27] MEDS ORDERED: SODIUM CHLORIDE 0.9% 1,000 ML IV SCH (07:50)
[2023-10-27] MEDS ORDERED: Ceftriaxone Sodium 1 GM in SYRINGE INFUSION 10 ML IV SCH (08:00)
[2023-10-27 08:36] LABS: VITAMIN D, 25-HYDROXY 19.4 ng/mL (30-100)
[2023-10-27] MEDS ORDERED: SODIUM CHLORIDE 0.9% 1,000 ML BAG IV ONE (09:11)
[2023-10-27] MEDS ORDERED: Vancomycin Hydrochloride 1,000 MG/250 ML BAG IV ONE (09:11)
[2023-10-27] MEDS ORDERED: Vancomycin Hydrochloride 500 MG VIAL IV ONE (09:11)
[2023-10-27] MEDS ORDERED: SODIUM CHLORIDE 0.9% 250 ML BAG IV ONE (09:11)
[2023-10-27 09:12] LABS: ACT PARTIAL THROMBO TIME 31.5 SECONDS (20.0-32.1)
[2023-10-27] MEDS ORDERED: methylPREDNISolone sod succ 40 MG VIAL IV SCH (10:00)
[2023-10-27] MEDS ORDERED: ESCITALOPRAM OXALATE 10 MG TAB PO SCH (10:00)
[2023-10-27] MEDS ORDERED: Insulin Glargine, Recombinan 1 UNIT/0.01 ML SC SCH (10:00)
[2023-10-27] MEDS ORDERED: METRONIDAZOLE 500 MG TAB PO SCH (10:00)
[2023-10-27] MEDS ORDERED: LISINOPRIL 5 MG TAB PO SCH (10:00)
[2023-10-27] MEDS ORDERED: Lidocaine Hydrochloride 5 ML AMP ONE (10:31)
[2023-10-27] MEDS ORDERED: SODIUM BICARBONATE 4.2% 5 ML VIAL ONE (10:32)
[2023-10-27] MEDS ORDERED: SODIUM CHLORIDE 0.9% 200 ML IV ONE ×2 (10:33→11:03)
[2023-10-27] MEDS ORDERED: MORPHINE Sulfate 2 MG/ML SYR IV ONE (11:10)
[2023-10-27] MEDS ORDERED: Metoprolol Tartrate 5 MG/5 ML VIAL IV ONE ×2 (13:55→14:05)
[2023-10-27] MEDS ORDERED: ATORVASTATIN CALCIUM 10 MG TAB PO SCH (18:00)
[2023-10-28] VITALS: BP 142/92
[2023-10-28] MEDS ORDERED: Levothyroxine Sodium 75 MCG TAB PO SCH (06:00)
[2023-10-28 08:00] VITALS: BP 109/64
[2023-10-28] MEDS ORDERED: Metoprolol Tartrate 25 MG TAB PO SCH (10:00)
[2023-10-28] MEDS ORDERED: CALCIUM (TUMS) 500MG PO PRN (11:50)
[2023-10-28 12:00] VITALS: BP 134/73
[2023-10-28] MEDS ORDERED: Ceftriaxone Sodium 1 GM in SYRINGE INFUSION 10 ML IV ONE (15:25)
[2023-10-28 16:00] VITALS: BP 117/72
[2023-10-28] MEDS ORDERED: CEPHALEXIN500 M1 PO (18:25)
[2023-10-28 20:00] VITALS: BP 124/79
[2023-10-29] VITALS: BP 136/83
[2023-10-29 05:38] LABS: BUN 9 mg/dl (9-23); CHLORIDE 103 mmol/L (98-107); POTASSIUM 3.8 mmol/L (3.4-5.1)
[2023-10-29 05:57] LABS: BASO % 0.3 % (0.0-1.0); EOS # 0.2 10*3/uL (0.0-0.4); EOS % 1.6 % (1.0-4.0); HEMATOCRIT 30.9 % (37.0-47.0); LYMPH # 1.8 10*3/uL (1.3-4.4); LYMPH % 18.9 % (27.0-41.0); MEAN CELL VOLUME 95.4 fl (81.0-99.0); MEAN CORPUSCULAR HGB 31.2 pg (27.0-31.0); MEAN CORPUSCULAR HGB CONC 32.7 g/dl (33.0-37.0); MEAN PLATELET VOLUME 9.9 fl (9.6-12.3); MONO # 0.6 10*3/uL (0.1-1.0); MONO % 5.7 % (3.0-9.0); NEUT % 71.9 % (47.0-73.0); PLATELET COUNT AUTOMATED 516 10*3/uL (130-400); RED BLOOD COUNT 3.24 10*6/uL (4.10-5.10); RED CELL DISTRI WIDTH 13.3 % (0-14.5); WHITE BLOOD COUNT 9.7 10*3/uL (4.8-10.8)
[2023-10-29 08:00] VITALS: BP 125/76
[2023-10-29] MEDS ORDERED: Ceftriaxone Sodium 2 GM in SYRINGE INFUSION 20 ML IV SCH (08:00)
[2023-10-29] MEDS ORDERED: Cholecalciferol 5,000 IU CAP (125 MCG) PO SCH (10:00)
[2023-10-29] MEDS ORDERED: Enoxaparin Sodium 40 MG/0.4 ML SYR SC SCH (11:55)
[2023-10-29 12:00] VITALS: BP 120/67
[2023-10-29 16:00] VITALS: BP 144/77
[2023-10-29] MEDS ORDERED: CEPHALEXIN500 M1 PO (18:02)
[2023-10-29 20:00] VITALS: BP 142/88
[2023-10-30] VITALS: BP 144/89
[2023-10-30 08:00] VITALS: BP 133/86
[2023-10-30] MEDS ORDERED: Nicotine 21 MG PATCH T SCH (10:00)
[2023-10-30 12:00] VITALS: BP 146/84
[2023-10-30 16:00] VITALS: BP 143/81
[2023-10-30 20:00] VITALS: BP 150/87
[2023-10-31] VITALS: BP 133/78
[2023-10-31 08:00] VITALS: BP 115/78
[2023-10-31 12:00] VITALS: BP 122/75
[2023-10-31 16:00] VITALS: BP 119/61
[2023-10-31 20:00] VITALS: BP 149/91
[2023-11-01 00:29] VITALS: BP 146/84
[2023-11-01 08:00] VITALS: BP 148/97
[2023-11-01 12:00] VITALS: BP 122/76
[2023-11-01 16:00] VITALS: BP 153/85
[2023-11-01 20:00] VITALS: BP 115/70
[2023-11-02] VITALS: BP 142/90
[2023-11-02 06:46] LABS: BASO % 0.4 % (0.0-1.0); EOS # 0.3 10*3/uL (0.0-0.4); EOS % 2.5 % (1.0-4.0); HEMATOCRIT 30.4 % (37.0-47.0); LYMPH # 2.9 10*3/uL (1.3-4.4); LYMPH % 28.7 % (27.0-41.0); MEAN CORPUSCULAR HGB 30.6 pg (27.0-31.0); MEAN CORPUSCULAR HGB CONC 30.9 g/dl (33.0-37.0); MEAN PLATELET VOLUME 9.7 fl (9.6-12.3); MONO # 0.6 10*3/uL (0.1-1.0); MONO % 6.3 % (3.0-9.0); NEUT # 6.1 10*3/uL (2.3-7.9); NEUT % 60.6 % (47.0-73.0); PLATELET COUNT AUTOMATED 477 10*3/uL (130-400); RED BLOOD COUNT 3.07 10*6/uL (4.10-5.10)
[2023-11-02] MEDS ORDERED: BARIUM SULFATE 2% 450 ML BOT PO SCH (07:05)
[2023-11-02 07:13] LABS: BUN 8 mg/dl (9-23); CHLORIDE 99 mmol/L (98-107); POTASSIUM 4.1 mmol/L (3.4-5.1)
[2023-11-02 08:00] VITALS: BP 144/83
[2023-11-02] MEDS ORDERED: IOHEXOL 300 MG/ML 100 ML VIAL IV ONE (09:00)
[2023-11-02] MEDS ORDERED: Acetaminophen/Hydrocodone 5 MG/325 MG TABLET PO PRN (11:30)
[2023-11-02 12:00] VITALS: BP 131/72
[2023-11-02 16:00] VITALS: BP 138/74
[2023-11-02 20:00] VITALS: BP 117/68
[2023-11-03] VITALS: BP 118/74
[2023-11-03 06:02] LABS: BASO % 0.4 % (0.0-1.0); EOS # 0.3 10*3/uL (0.0-0.4); EOS % 2.8 % (1.0-4.0); HEMATOCRIT 30.2 % (37.0-47.0); LYMPH # 2.6 10*3/uL (1.3-4.4); LYMPH % 27.2 % (27.0-41.0); MEAN CELL VOLUME 98.1 fl (81.0-99.0); MEAN CORPUSCULAR HGB 30.2 pg (27.0-31.0); MEAN CORPUSCULAR HGB CONC 30.8 g/dl (33.0-37.0); MEAN PLATELET VOLUME 9.5 fl (9.6-12.3); MONO # 0.6 10*3/uL (0.1-1.0); MONO % 6.4 % (3.0-9.0); NEUT # 5.8 10*3/uL (2.3-7.9); NEUT % 61.9 % (47.0-73.0); PLATELET COUNT AUTOMATED 465 10*3/uL (130-400); RED BLOOD COUNT 3.08 10*6/uL (4.10-5.10); RED CELL DISTRI WIDTH 14.4 % (0-14.5); WHITE BLOOD COUNT 9.4 10*3/uL (4.8-10.8)
[2023-11-03 07:12] LABS: BUN 5 mg/dl (9-23); CHLORIDE 100 mmol/L (98-107)
[2023-11-03 08:00] VITALS: BP 111/71
[2023-11-03] MEDS ORDERED: HYDROCODONE-AC1 EAC1 PO (11:38)
[2023-11-04] MEDS ORDERED: Enoxaparin Sodium 40 MG/0.4 ML SYR SC SCH (10:00)
== END 2023-11-03 12:50 | disposition home or self-care (01) | DRG 871 ==
LOC: ED 04:58 → 4E 08:10 → EDHOLD 08:10 → 4E 14:31
PROVIDERS: Internal Medicine; Registered Nurse; Student in an Organized Health Care Education/Training Program; ADMIT Family Medicine; ATTEND Family Medicine
PROC: 0W9H30Z Drainage of Retroperitoneum with Drainage Device, Percutaneous Approach (ICD-10-PCS; principal; 2023-10-27)
DX: A41.9 Sepsis, unspecified organism (principal); K68.12 Psoas muscle abscess; K68.19 Other retroperitoneal abscess; N39.0 Urinary tract infection, site not specified; M54.42 Lumbago with sciatica, left side; I10 Essential (primary) hypertension; E10.65 Type 1 diabetes mellitus with hyperglycemia; R31.9 Hematuria, unspecified; A59.9 Trichomoniasis, unspecified; E03.9 Hypothyroidism, unspecified; E83.42 Hypomagnesemia; E78.2 Mixed hyperlipidemia; D72.829 Elevated white blood cell count, unspecified; Z91.148 Patient's other noncompliance with medication regimen for other reason; Z88.8 Allergy status to other drugs, medicaments and biological substances; Z91.040 Latex allergy status; Z98.51 Tubal ligation status